=== PATIENT | female | born 1980 | race Caucasian/White ===

== ENCOUNTER 2018-07-20 20:49 | Inpatient (IN) | payer BC ==
[~2018-07-20 20:49] MED LIST: ISOVUE-370 76%-LOCM 1 ML ONE
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
[2018-07-20 22:17] LABS: #Eosinphils 0.2 thou/uL (0.0-0.7); #Lymphocytes 1.6 thou/uL (1.20-3.40); #Neutrophils 15.1 thou/uL (1.40-6.50); %Basophils 0.2 % (0.0-1.0); %Lymphocytes 8.9 % (21.0-51.0); %Monocytes 5.7 % (0.0-10.0); %Neutrophils 84.2 % (42.0-75.0); Hemoglobin 12.2 g/dL (12.0-16.0); Mean Corpuscular HGB CONC 33.1 g/dL (32.0-36.0); Mean Corpuscular Hemoglobin 29.3 pg (27.0-31.0); Mean Corpuscular Volume 88.5 fL (78.0-98.0); Mean Platelet Volume 7.9 fL (7.4-10.4); Platelet Count 280 thou/uL (130-400); RBC Distribution Width 12.5 % (11.5-14.5); Red Blood Cell (RBC) Count 4.16 mill/uL (4.20-5.40); White Blood Cell (WBC) Count 17.9 thou/uL (4.8-10.8)
[2018-07-20] MEDS ORDERED: Adacel (T-DAP) 0.5 ML VIAL ONE (22:17)
[2018-07-20] MEDS ORDERED: Dextrose 50% Abboject 50 ML SYRINGE SLOW IVP PRN (22:27)
[2018-07-20] MEDS ORDERED: Ondansetron PF 4 MG/2 ML Vial IVP PRN (22:27)
[2018-07-20] MEDS ORDERED: Ondansetron ODT 4 MG TAB PO PRN (22:27)
[2018-07-20] MEDS ORDERED: Dextrose 5% in Water 1,000 ML IV PRN (22:27)
[2018-07-20 22:29] LABS: INR-International Normal Ratio 1.4; PTT 28.9 SEC (22.9-36.1); Prothrombin Time 17.4 SEC (12.0-14.7)
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
[2018-07-20] MEDS ORDERED: Rib Fracture Protocol PO SCH (22:30)
[2018-07-20 22:31] LABS: Anion Gap 12 mmol/L (10-20); BUN (Urea Nitrogen) 17 mg/dL (7.0-18.7); Calc. Creatinine Clearance 0 mL/min (70-130); Calcium 8.3 mg/dL (7.8-10.44); Carbon Dioxide 23 mmol/L (22-29); Chloride 102 mmol/L (98-107); Estimated GFR-MDRD 88; Glucose 143 mg/dL (70-105); Magnesium 1.9 mg/dL (1.6-2.6); Potassium 3.6 mmol/L (3.5-5.1); Sodium 133 mmol/L (136-145)
[2018-07-20] MEDS ORDERED: Ketorolac Tromethamine 30 MG/ML VIAL ONE (22:43)
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
[2018-07-20] MEDS ORDERED: Ibuprofen 800 MG TAB PO SCH (23:59)
[2018-07-21 00:24] VITALS: BMI 34.6
[2018-07-21] MEDS: traMADol HCl 50 MG TAB PO SCH ×4 (01:05→16:30)
[2018-07-21] MEDS: Acetaminophen 500 MG TAB PO SCH ×4 (01:06→17:27)
[2018-07-21 05:08] LABS: Anion Gap 13 mmol/L (10-20); BUN (Urea Nitrogen) 16 mg/dL (7.0-18.7); Calc. Creatinine Clearance 146 mL/min (70-130); Calcium 8.2 mg/dL (7.8-10.44); Carbon Dioxide 25 mmol/L (22-29); Chloride 102 mmol/L (98-107); Estimated GFR-MDRD 86; Glucose 135 mg/dL (70-105); Phosphorus 3.9 mg/dL (2.3-4.7); Sodium 136 mmol/L (136-145)
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
[2018-07-21] MEDS: Ibuprofen 800 MG TAB PO SCH ×2 (05:59→12:08)
[2018-07-21 06:56] LABS: Hemoglobin 12.2 g/dL (12.0-16.0); Mean Corpuscular HGB CONC 31.6 g/dL (32.0-36.0); Mean Corpuscular Volume 88.6 fL (78.0-98.0); Mean Platelet Volume 7.9 fL (7.4-10.4); Platelet Count 288 thou/uL (130-400); RBC Distribution Width 12.7 % (11.5-14.5); Red Blood Cell (RBC) Count 4.37 mill/uL (4.20-5.40); White Blood Cell (WBC) Count 22.3 thou/uL (4.8-10.8)
[2018-07-21 08:17] LABS: Band 14 % (5-11); Lymphocytes 5 % (21-51); MDiff Complete? YES; Monocytes 3 % (0-10); Neutrophil 78 % (42-75); PLT Morphology Comment Appears Adequate
--- NOTE | 2018-07-21 08:31 | CT ---
PRELIMINARY REPORT/[facility]/EMERGENTY AFTER-HOURS PROCEDURE CT Head Without Intravenous Contrast EXAM DATE/TIME: 07/21/2018 4:27 AM CLINICAL HISTORY: 37 years old, female; Condition or disease; Other: Right parietal tsah; Patient HX: Follow up right p arietal tsah TECHNIQUE: Axial computed tomography images of the head/brain without intravenous contrast. COMPARISON: CT Brain WO Con 07/20/2018 9:10 PM FINDINGS: Brain: As before, a small amount of subarachnoid blood is again seen in the high right posterior rosario etal region. No significant interval change in appearance. No definite new hemorrhage in the interval . No significant mass effect or midline shift. No definite acute infarct by CT. Ventricles: Ventricle size is not significantly changed. Bones/joints: No definite acute skull fracture. Sinuses: Included paranasal sinuses are essentially clear. Mastoid air cells: No significant acute finding. IMPRESSION: 1. A small amount of subarachnoid blood is again seen in the high right posterior parietal region, no t significantly changed. 2. No definite new hemorrhage in the interval. 3. No significant mass effect or midline shift. Thank you for allowing us to participate in the care of your patient. Dictated and Authenticated by: Black Sultana MD 07/21/2018 4:59 AM Central Time ([place] & [place]) FINAL REPORT EMERGENTY AFTER HOURS CT BRAIN WITHOUT CONTRAST: Comparison: 07-20-18 FINDINGS/IMPRESSION: I agree with the findings and impression given in the preliminary report via [facility] physician. There is a stable small amount of subarachnoid hemorrhage along the right parietal convexity. POS: [facility]
[2018-07-21] MEDS: Gabapentin 300 MG CAP PO SCH ×3 (09:03→21:30)
[2018-07-21] MEDS: Cefdinir 300 MG CAP PO SCH ×2 (09:03→21:30)
[2018-07-21] MEDS: Famotidine 20 MG TAB PO SCH ×2 (09:03→21:30)
[2018-07-21] MEDS: Senokot S 8.6-50 MG TAB PO SCH ×2 (09:05→21:30)
[2018-07-21] MEDS: Polyethylene Glycol 3350 17 GM Packet PO SCH (09:05)
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
[2018-07-21] MEDS ORDERED: Clopidogrel Bisulfate 75 MG TAB ONE (09:14)
[2018-07-21] MEDS: Phenazopyridine HCl 97.5 MG TABLET PO SCH ×3 (09:17→21:30)
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
[2018-07-22] MEDS: Acetaminophen 500 MG TAB PO SCH ×4 (00:40→18:28)
[2018-07-22] MEDS: traMADol HCl 50 MG TAB PO SCH ×4 (00:40→18:28)
[2018-07-22] MEDS: Cefdinir 300 MG CAP PO SCH ×2 (08:05→21:26)
[2018-07-22] MEDS: Phenazopyridine HCl 97.5 MG TABLET PO SCH ×3 (08:05→21:26)
[2018-07-22] MEDS: Gabapentin 300 MG CAP PO SCH ×3 (08:05→21:26)
[2018-07-22] MEDS: Polyethylene Glycol 3350 17 GM Packet PO SCH (11:09)
[2018-07-22] MEDS: Famotidine 20 MG TAB PO SCH ×2 (11:09→21:26)
[2018-07-22] MEDS: Senokot S 8.6-50 MG TAB PO SCH ×2 (11:10→21:26)
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
[2018-07-22] MEDS ORDERED: Lidocaine 1% (PF) 30 ML VIAL ONE (11:49)
[2018-07-22] MEDS ORDERED: Midazolam HCl 2 mg/2 ml Vial ONE (12:08)
[2018-07-22] MEDS ORDERED: Fentanyl 100 MCG/2 ML VIAL ONE (12:08)
[2018-07-22] MEDS ORDERED: Iopamidol 370 76% 50 ML VIAL FS ONE (13:27)
--- NOTE | 2018-07-22 13:39 | OP ---
DATE OF OPERATION: 07/22/2018 PREOPERATIVE DIAGNOSES: History of protein S deficiency and bilateral deep vein thromboses with contraindication to anticoagulation due to closed head injury. POSTOPERATIVE DIAGNOSES: History of protein S deficiency and bilateral deep vein thromboses with contraindication to anticoagulation due to closed head injury. PROCEDURE: Bilateral pelvic venograms. SURGEON: Darwin Brooks M.D. ANESTHESIA: A 1% lidocaine for local with 1 mg Versed and 25 mcg fentanyl for IV sedation. TOTAL CONTRAST: 4 mL. TOTAL FLUOROSCOPY TIME: 1.1 minutes. DESCRIPTION OF PROCEDURE: After consent was obtained, the patient was brought to the lab engineer, placed in supine position on lab engineer table. Appropriate monitor was placed. IV sedation was begun. Groins were prepped and draped in usual sterile fashion. Using ultrasound, the groins were interrogated. The femoral veins were very difficult to localize, but we did localize a venous structure next to the femoral artery. This area was anesthetized with 1% lidocaine. On the right, the vein was accessed and a micropuncture sheath placed. The wire did not pass smoothly. Therefore, we injected the vein under digital subtraction angiography and this was a large pelvic network of veins. I made multiple more attempts using ultrasound guidance at finding another vein and there was no other vein present. We aborted the right side and went to the left. This was again anesthetized with 1% lidocaine. There was a similar finding in her femoral area that the vein was hard to localize. We did find a compressible vein that we passed a micropuncture sheath into and hand injected. This showed a large venous collateral network again. 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 I have discussed the situation with Dr. Kemp. The utility of a filter in a patient with an occluded venous system bilaterally is probably negligable. She is protected from lower extremity PE by the occlusion of her iliac system and collateral vessels. I do not think a vena cava filter placement from a jugular approach is indicated in this situation as it would not offer any benefit. AYSHA
[2018-07-22] MEDS: Cyclobenzaprine 10 MG TAB PO PRN (16:26)
[2018-07-23] MEDS: traMADol HCl 50 MG TAB PO SCH ×3 (00:05→11:19)
[2018-07-23] MEDS: Acetaminophen 500 MG TAB PO SCH ×3 (00:06→11:19)
[2018-07-23] MEDS: Senokot S 8.6-50 MG TAB PO SCH (08:50)
[2018-07-23] MEDS: Gabapentin 300 MG CAP PO SCH ×2 (08:50→14:54)
[2018-07-23] MEDS: Famotidine 20 MG TAB PO SCH (08:50)
[2018-07-23] MEDS: Phenazopyridine HCl 97.5 MG TABLET PO SCH (08:50)
[2018-07-23] MEDS: Cefdinir 300 MG CAP PO SCH (08:50)
[2018-07-23] MEDS: Polyethylene Glycol 3350 17 GM Packet PO SCH (08:51)
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
[2018-07-23] MEDS: Cyclobenzaprine 10 MG TAB PO PRN (14:54)
[2018-07-23 16:19] VITALS: BP 130/93; TEMP 98.2
== END 2018-07-23 16:43 | disposition home or self-care (01) | DRG 551 ==
LOC: ERS 20:49 → ERHOLD 21:50 → CCU 23:51 → SURG A 07-21 18:59
PROVIDERS: ADMIT Specialist; ATTEND Specialist
PROC: B51H1ZZ Fluoroscopy of Bilateral Pelvic (Iliac) Veins using Low Osmolar Contrast (ICD-10-PCS; principal; 2018-07-22)
DX: S12.400A Unspecified displaced fracture of fifth cervical vertebra, initial encounter for closed fracture (principal); S06.6X9A Traumatic subarachnoid hemorrhage with loss of consciousness of unspecified duration, initial encounter; S22.059A Unspecified fracture of T5-T6 vertebra, initial encounter for closed fracture; S22.069A Unspecified fracture of T7-T8 vertebra, initial encounter for closed fracture; S22.079A Unspecified fracture of T9-T10 vertebra, initial encounter for closed fracture; S22.089A Unspecified fracture of T11-T12 vertebra, initial encounter for closed fracture; D68.59 Other primary thrombophilia; N39.0 Urinary tract infection, site not specified; S12.500A Unspecified displaced fracture of sixth cervical vertebra, initial encounter for closed fracture; Z53.8 Procedure and treatment not carried out for other reasons; Z86.718 Personal history of other venous thrombosis and embolism; Z79.2 Long term (current) use of antibiotics; Z79.01 Long term (current) use of anticoagulants; V49.40XA Driver injured in collision with unspecified motor vehicles in traffic accident, initial encounter; Y92.410 Unspecified street and highway as the place of occurrence of the external cause
CPT/HCPCS: 36415; 70450; 71260; 72125; 74177; 75820; 80048; 83735; 84100; 85025; 85610; 85730; 90471; 90715; 94640; 94760; 96374; 99152; C1769; G0390; G8978-GP-CK; G8979-GP-CI; G8987-GO-CJ; G8988-GO-CI; J1644; J1885; J2001; J2250; J2405; J3010; J7620; L0172; Q0162

== ENCOUNTER 2018-08-05 13:41 | Outpatient (CLI) | payer BC ==
--- NOTE | 2018-08-05 15:22 | CT ---
CT HEAD NONCONTRAST: CLINICAL INDICATIONS: Intracranial hemorrhage. Subdural hematoma. Followup. COMPARISON: 07/21/2018 FINDINGS: Prior small volume subarachnoid hemorrhage is no longer visualized. There is no mass effect, midline shift, or ventriculomegaly. Scalp hematoma has resolved. No additional significant interval change demonstrated. IMPRESSION: Interval resolution of prior small volume subarachnoid hemorrhage. There is no evidence of an acute intracranial abnormality. POS: [facility]
== END 2018-08-05 13:42 | disposition home or self-care (01) ==
LOC: TBSIIMAG 13:41
PROVIDERS: ATTEND Neurological Surgery
DX: S06.5X0A Traumatic subdural hemorrhage without loss of consciousness, initial encounter (principal); S06.6X0A Traumatic subarachnoid hemorrhage without loss of consciousness, initial encounter
CPT/HCPCS: 70450

== ENCOUNTER 2018-09-07 15:45 | Outpatient (CLI) | payer BC ==
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
--- NOTE | 2018-09-07 17:16 | RAD ---
CERVICAL SPINE TWO VIEWS: HISTORY: A 37-year-old female with a history of S24.101A. Follow-up cervical spine fracture. COMPARISON: CT from 07/20/2018. FINDINGS: There is some irregularity of the superior facet of C6, as seen on the lateral view, consistent with the previously noted left C6 superior facet fracture. The nondisplaced left C5 lamina fracture is no t definitely evident on this study. No significant abnormal soft tissue swelling. A neck brace over lies the cervical spine, somewhat obscuring it. C7 and T1, as well as portions of the C1 and C2 odon toid, are obscured. No significant malalignment. IMPRESSION: Irregularity of the superior facet of C6, evidence for the previously noted left facet fracture. The previously noted nondisplaced left C5 lamina fracture is not definitely seen on the plain film. No significant malalignment. POS: [facility]
== END 2018-09-07 15:46 | disposition home or self-care (01) ==
LOC: TBSIIMAG 15:45
PROVIDERS: ATTEND Neurological Surgery
DX: S24.101A Unspecified injury at T1 level of thoracic spinal cord, initial encounter (principal)
CPT/HCPCS: 72040; 72070

== ENCOUNTER 2018-10-12 13:46 | Outpatient (CLI) | payer BC ==
--- NOTE | 2018-10-12 15:08 | RAD ---
THORACIC SPINE THREE VIEWS: Indications: Follow up thoracic vertebral body fractures. Comparison: Thoracic spine films, 09-07-18. FINDINGS: Mild anterior wedging at T12 is unchanged. Minimal anterior wedging at T6, T7, T9 and T10 are unchanged. There is mild anterior osteophytes. Pos terior alignment is preserved. Posterior height is preserved throughout. IMPRESSION: Stable findings when compared to 09-07-18. POS: [facility]
--- NOTE | 2018-10-12 15:27 | RAD ---
CERVICAL SPINE SERIES 3 VIEWS: HISTORY: Followup of a fracture. FINDINGS: Vertebral bodies are normal in height. Disk spaces all appear well preserved. The facet irregularit y seen on the previous 09/07/2018 study at C6 is difficult to appreciate on this study, although subt le irregularity noted. Alignment is normal. IMPRESSION: Stable exam. No malalignment. POS: [facility]
== END 2018-10-12 13:47 | disposition home or self-care (01) ==
LOC: TBSIIMAG 13:46
PROVIDERS: ATTEND Neurological Surgery
DX: S12.9XXD Fracture of neck, unspecified, subsequent encounter (principal)
CPT/HCPCS: 72040; 72072